=== PATIENT | female | born 1970 | race Caucasian/White ===

== ENCOUNTER → 2016-09-25 | Day surgery (SDC) | payer BC ==
[~2016-09-25] VITALS: Ht 167.6 cm; Wt 122.9 kg
[~2016-09-25] MED LIST: ADULT LOW DOSE81 MG PO; AUGMENTIN1 TA2 PO; DEXILANT30 MG; FLEXERIL10 MG PO; IBUPROFEN800 MG PO; LORTAB 5/500 501 TAB PO; NAPROXEN SODIU500 MG PO; PHENTERMINE HCL30 MG PO; PREDNISONE 5MG.5 MG PO; PROBIOTIC1 EAC5 PO
--- NOTE | 2016-09-25 11:03 | Anesthesia Record ---
Anesthesia Record Part I Total IV fluids: 1000 EBL (ml): 0 Urine Output: 0 B/P: 128/80 % SaO2: 92 Pulse: 92 Resps: 12 Temp: 98.1 Patient is: Awake, Stable Stable to PACU at: 1100 at 1103
--- NOTE | 2016-09-25 11:04 | Anesthesia Record ---
Anesthesia Record Part II Discharge time: 1130 Destination: Same day surgery PACU nurse assessment review? Yes Patient is: Awake, Stable Anesthesia complications? No at 1107
[2016-09-25 15:26] VITALS: BP 113/72
--- NOTE | 2016-09-25 15:59 | Operative Note-Urology ---
Procedure/Operative Record Procedure DATE OF PROCEDURE: 09/25/16 PREOPERATIVE DIAGNOSIS: Urinary incontinence Microscopic hematuria POSTOPERATIVE DIAGNOSIS: Stress urinary incontinence Benign microscopic hematuria PROCEDURE PERFORMED: Cystoscopy SURGEON: Yvon Hernadez ANESTHESIA: Gen. BRIEF HISTORY: Patient underwent suburethral sling placement 6 months ago. She had initial excellent response but then developed severe bronchitis for 3-4 weeks. She then had recurrence of her incontinence. She is also noted recently to have persistent microscopic hematuria and presents today for cystoscopy for further evaluation of both. OPERATIVE NOTE: After satisfactory general anesthesia she was carefully placed in the dorsolithotomy position. The genital area was prepped and draped in standard fashion. External genitalia was unremarkable. She does have some hypermobility of the bladder neck. Cystoscope was inserted. 22 Divehi sheath was used. The bladder was inspected with both 30 and 70 degree lenses. There is no evidence of mesh exposure. Bladder was otherwise unremarkable other than minimal cystocele. She demonstrated no obvious uninhibited bladder contractions during cystoscopy. With her bladder full and the scope removed she freely leaked urine. Bladder was drained and cystoscope withdrawn. EBL (ml): 0 IMPRESSION: Stress urinary incontinence recurrence. PLAN: Follow-up 2 weeks to discuss options. No further surgical intervention would be suggested at this time unless she loses significant weight. at 4592
== END ==
LOC: SDC 09:02
PROVIDERS: Urology
PROC: 0TJB8ZZ Inspection of Bladder, Via Natural or Artificial Opening Endoscopic (ICD-10-PCS; principal; 2016-09-25 10:00)
DX: N39.3 Stress incontinence (female) (male) (principal); R31.29 Other microscopic hematuria